=== PATIENT | female | born 1960 | race Caucasian/White ===

== ENCOUNTER 2017-11-18 01:17 | Emergency (ER) | payer MEDICAID ==
[2017-11-18 01:23] VITALS: RESP 16
--- NOTE | 2017-11-18 01:41 | EDPHY ---
H & P Stated Complaint: depression, inconsistently taking bipolar meds, delusional - Personal History Current Tetanus/Diphtheria Vaccine: Yes - Medical/Surgical History Hx Asthma: Yes Hx Chronic Respiratory Disease: No Hx Diabetes: No Hx Cardiac Disease: No Hx Renal Disease: No Hx Cirrhosis: No Hx Alcoholism: No Hx HIV/AIDS: No Hx Splenectomy or Spleen Trauma: No Other PMH: PMHx: TBI, ADHD, Bipolar disorder, PTSD, depression. PSHx: Gangion cyst removed from R wrist - Social History Smoking Status: Current every day smoker Time Seen by Provider: 11/18/17 01:28 HPI/ROS: Chief Complaint: Suicidal thoughts HPI: 57-year-old woman with history of bipolar disorder, inconsistently taking lithium presenting with thoughts of suicide. Patient states that she is exhausted and just "worn out ". Patient has been having thoughts of suicide and jumping out into traffic. She is currently homeless. Has been kicked out of the homeless long-term. Has had suicide attempts in the past. Does not feel safe at this time. Denies recent illness. No fevers or chills. No cough. No nausea or vomiting. Patient is avoiding answering with that she is hallucinating but states she is not hearing voices telling her to harm herself or others. ROS: 10 point Review of Systems is negative except as noted in the HPI. PMH: Bipolar disorder Social History: Denies smoking, currently homeless e] Family History: non-contributory Physical Exam: Gen: Awake, Alert, No Distress HEENT: Nose: no rhinorrhea Eyes: PERRLA, EOMI Mouth: Moist mucosa Neck: Supple, no JVD Chest: nontender, lungs clear to auscultation Heart: S1, S2 normal, no murmur Abd: Soft, non-tender, no guarding Back: no CVA tenderness, no midline tenderness Ext: no edema, non-tender Skin: no rash Neuro: CN II-XII intact, Sensation grossly intact, Strength 5/5 in bilateral upper and lower extremities (Gray Baer) Constitutional: Initial Vital Signs Temperature (C) 36.7 C 11/18/17 01:19 Heart Rate 107 H 11/18/17 01:19 Respiratory Rate 16 11/18/17 01:19 Blood Pressure 130/70 H 11/18/17 01:19 O2 Sat (%) 97 11/18/17 01:19 O2 Delivery Mode Room Air Allergies/Adverse Reactions: Penicillins Allergy (Verified 09/18/13 15:06) Home Medications: Medication Instructions Recorded [place] [facility] 11/18/17 Medical Decision Making ED Course/Re-evaluation: Patient has been evaluated by the mental health human resources benefits assistant. She believes that the patient will for benefit from going to a crisis stabilization unit. They will for placement this time. 0700 patient care transferred to Dr. Yoder pending placement. (Gray Baer) Other Provider: Patient has been medically cleared and care is assumed at 6:40 a.m. with plan for CSU placement. 751: Voluntary, not suicidal per RN evaluation at this time. 1056: Patient has a crisis stabilization unit admission arranged, she will be going voluntarily by cab. (Diaz Yoder) - Data Points Laboratory Results: Laboratory Results 11/18/17 01:50 11/18/17 01:50 11/18/17 11/18/17 11/18/17 01:50 01:50 01:50 WBC 8.60 10^3/uL 10^3/uL (3.80-9.50) RBC 3.89 10^6/uL L 10^6/uL (4.18-5.33) Hgb 10.4 g/dL L g/dL (12.6-16.3) Hct 33.1 % L % (38.0-47.0) MCV 85.1 fL fL (81.5-99.8) MCH 26.7 pg L pg (27.9-34.1) MCHC 31.4 g/dL L g/dL (32.4-36.7) RDW 17.6 % H % (11.5-15.2) Plt Count 371 10^3/uL 10^3/uL (150-400) MPV 9.0 fL fL (8.7-11.7) Neut % (Auto) 65.0 % % (39.3-74.2) Lymph % (Auto) 23.7 % % (15.0-45.0) [place] % (Auto) 8.4 % % (4.5-13.0) Eos % (Auto) 2.0 % % (0.6-7.6) Baso % (Auto) 0.6 % % (0.3-1.7) Nucleat RBC Rel Count 0.0 % % (0.0-0.2) Absolute Neuts (auto) 5.59 10^3/uL 10^3/uL (1.70-6.50) Absolute Lymphs (auto) 2.04 10^3/uL 10^3/uL (1.00-3.00) Absolute Monos (auto) 0.72 10^3/uL 10^3/uL (0.30-0.80) Absolute Eos (auto) 0.17 10^3/uL 10^3/uL (0.03-0.40) Absolute Basos (auto) 0.05 10^3/uL 10^3/uL (0.02-0.10) Absolute Nucleated RBC 0.00 10^3/uL 10^3/uL (0-0.01) Immature Gran % 0.3 % % (0.0-1.1) Immature Gran # 0.03 10^3/uL 10^3/uL (0.00-0.10) Sodium 143 mEq/L mEq/L (134-144) Potassium 4.2 mEq/L mEq/L (3.5-5.2) Chloride 111 mEq/L H mEq/L (97-110) Carbon Dioxide 18 mEq/l L mEq/l (22-31) Anion Gap 14 mEq/L mEq/L (8-16) BUN 16 mg/dL mg/dL (7-23) Creatinine 0.7 mg/dL mg/dL (0.6-1.0) Estimated GFR > 60 Glucose 113 mg/dL H mg/dL (70-100) Calcium 10.4 mg/dL mg/dL (8.5-10.4) Urine Opiates Screen NEGATIVE (NEGATIVE) Urine Barbiturates NEGATIVE (NEGATIVE) Ur Phencyclidine Scrn NEGATIVE (NEGATIVE) Ur Amphetamine Screen NEGATIVE (NEGATIVE) U Benzodiazepines Scrn NEGATIVE (NEGATIVE) [place] 0.3 mEq/L L mEq/L (0.6-1.2) Urine Cocaine Screen NEGATIVE (NEGATIVE) U Marijuana (THC) Screen NON-NEGATIVE H (NEGATIVE) Ethyl Alcohol < 10 mg/dL mg/dL (0-10) Departure - Departure Disposition: Home, Routine, Self-Care Clinical Impression: Bipolar disorder Condition: Good Instructions: Bipolar Disorder (ED) Referrals: [facility],. [Clinic] - As per Instructions
[2017-11-18 01:56] LABS: PLATELET COUNT 371 10^3/uL (150-400)
[2017-11-18 08:00] VITALS: BP 99/58; PULSE 86; TEMP 97.5; O2SAT 98
== END 2017-11-18 11:39 | disposition home or self-care (01) ==
DX: F31.9 Bipolar disorder, unspecified (principal); F17.200 Nicotine dependence, unspecified, uncomplicated; J45.909 Unspecified asthma, uncomplicated
CPT/HCPCS: 80305; G0480

== ENCOUNTER → 2017-12-07 | Outpatient (CLI) | payer MEDICAID | LOC: FIMAGING 13:36 | PROVIDERS: ATTEND Obstetrics & Gynecology | DX: N83.201 Unspecified ovarian cyst, right side (principal) ==

== ENCOUNTER 2017-12-24 02:06 | Emergency (ER) | payer MEDICAID ==
[2017-12-24 02:12] VITALS: TEMP 97.9
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
[2017-12-24 05:31] VITALS: BP 132/69; PULSE 67; RESP 18; O2SAT 99
== END 2017-12-24 05:30 | disposition home or self-care (01) ==
DX: R53.83 Other fatigue (principal); F17.200 Nicotine dependence, unspecified, uncomplicated; J45.909 Unspecified asthma, uncomplicated; Z59.0 Homelessness

== ENCOUNTER 2017-12-24 16:44 | Emergency (ER) | payer MEDICAID ==
[2017-12-24 18:33] LABS: PLATELET COUNT 381 10^3/uL (150-400)
--- NOTE | 2017-12-24 18:55 | EDPHY ---
H & P Stated Complaint: "I'm going to fucking kill myself" No plan;seen early this morning - Personal History Current Tetanus Diphtheria and Acellular Pertussis (TDAP): Unsure - Medical/Surgical History Hx Asthma: Yes Hx Chronic Respiratory Disease: No Hx Diabetes: No Hx Cardiac Disease: No Hx Renal Disease: No Hx Cirrhosis: No Hx Alcoholism: No Hx HIV/AIDS: No Hx Splenectomy or Spleen Trauma: No Other PMH: PMHx: TBI, ADHD, Bipolar disorder, PTSD, depression. PSHx: Gangion cyst removed from R wrist homeless - Social History Smoking Status: Current every day smoker Time Seen by Provider: 12/24/17 17:26 HPI/ROS: CHIEF COMPLAINT: Going to kill myself HISTORY OF PRESENT ILLNESS: This is a 57-year-old female who was referred to the emergency department by her mechanical applications engineer after an office visit today. The patient was scheduled to undergo hysterectomy tomorrow but the surgery was canceled because the patient is homeless and has no vertigo postoperatively. She told her mechanical applications engineer she was going to walk out in front of a bus to kill herself. As result, she was referred to the emergency department. The patient tells me that she wants to and has no reason to live. Her plan is to walk out in front of a bus. She has been a client at [facility]. REVIEW OF SYSTEMS: A ten point review of systems was performed and is negative with the exception of the items mentioned in the HPI. Past medical history: Bipolar Social history: She is homeless. General Appearance: Alert. Vital signs reviewed. Eyes: Pupils equal and round, no conjunctival injection, no discharge. Anicteric. ENT, Mouth: Mucous membranes are moist, no oropharyngeal erythema or edema. Neck: No lymphadenopathy, supple. Respiratory: Lungs are clear to auscultation; no wheezes, rales, or rhonchi. Cardiovascular: Regular rate and rhythm; no murmur, rub, or gallop. Gastrointestinal: Abdomen is soft and nontender, no masses or organomegaly, bowel sounds normal. Skin: Warm and dry, no rashes on exposed skin, normal color. Back: Nontender to palpation over the thoracolumbar spine. No CVAT. Extremities: No lower extremity edema, no calf tenderness or swelling. Neurological: Alert and oriented. Moving all four extremities easily and equally. Psychiatric: Angry affect. (Lacy Hackett) Constitutional: Initial Vital Signs Temperature (C) 36.5 C 12/24/17 16:49 Heart Rate 68 12/24/17 16:49 Respiratory Rate 18 12/24/17 16:49 Blood Pressure 138/70 H 12/24/17 16:49 O2 Sat (%) 98 12/24/17 16:49 O2 Delivery Mode Room Air Allergies/Adverse Reactions: Penicillins Allergy (Verified 12/24/17 16:49) Home Medications: Medication Instructions Recorded [place] [facility] 11/18/17 Medical Decision Making ED Course/Re-evaluation: 11:30 p.m.- Mental health evaluation has been completed. Recommendation is for crisis stabilization unit, no need to maintain M1 hold. 7:00 a.m.- The patient has been stable throughout my shift. The case is signed out to Dr. Velasco at 7:00 a.m.. (Veronique King) Patient was medically cleared for mental health evaluation. At 11:00 p.m. mental health evaluation is in progress. Her care is transferred to Dr. King. (Lacy Hackett) Differential Diagnosis: I considered a differential diagnosis that includes but is not limited to suicidality, homicidality, depression, psychosis, intoxicants, and malingering. (Lcay Hackett) Other Provider: 1420: Patient has been accepted to [facility]. She remained stable over the course of my shift. (Ez Velasco) - Data Points Laboratory Results: Laboratory Results 12/24/17 18:17 12/24/17 18:17 Medications Given: Discontinued Medications Acetaminophen (Tylenol) 1,000 mg PO EDNOW ONE Stop: 12/25/17 01:53 Last Admin: 12/25/17 01:54 Dose: 1,000 mg Acetaminophen (Tylenol) 1,000 mg PO EDNOW ONE Stop: 12/25/17 07:51 Last Admin: 12/25/17 07:54 Dose: 1,000 mg Ibuprofen (Motrin) 800 mg PO EDNOW ONE Stop: 12/25/17 01:53 Last Admin: 12/25/17 01:53 Dose: 800 mg Ibuprofen (Motrin) 600 mg PO EDNOW ONE Stop: 12/25/17 07:52 Last Admin: 12/25/17 07:54 Dose: 600 mg Departure - Departure Disposition: Other Psych, Not [place] Clinical Impression: Suicidal ideation Condition: Fair Referrals: NONE *PRIMARY CARE P,. [Primary Care Provider] - As per Instructions
[2017-12-25] MEDS ORDERED: IBUPROFEN 800 MG TAB PO ONE ×2 (01:48→01:52)
[2017-12-25] MEDS ORDERED: ACETAMINOPHEN 500 MG TAB ONE (01:49)
[2017-12-25] MEDS ORDERED: ACETAMINOPHEN 500 MG TAB PO ONE ×2 (01:52→07:50)
[2017-12-25] MEDS ORDERED: IBUPROFEN 200 MG TAB PO ONE (07:51)
[2017-12-25 08:01] VITALS: RESP 16
[2017-12-25 14:26] VITALS: BP 114/69; PULSE 81; TEMP 98.4; O2SAT 96
== END 2017-12-25 15:05 ==
DX: R45.851 Suicidal ideations (principal); F17.200 Nicotine dependence, unspecified, uncomplicated; J45.909 Unspecified asthma, uncomplicated
CPT/HCPCS: 80305; G0480

== ENCOUNTER 2018-04-04 01:00 | Emergency (ER) | payer MEDICAID ==
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
[2018-04-04 01:24] VITALS: BP 132/80
== END 2018-04-04 01:53 | disposition home or self-care (01) ==
DX: F43.20 Adjustment disorder, unspecified (principal); J45.909 Unspecified asthma, uncomplicated; F17.200 Nicotine dependence, unspecified, uncomplicated; Z59.0 Homelessness